=== PATIENT | male | born 1970 | race Caucasian/White ===

== ENCOUNTER → 2023-08-11 06:52 | Outpatient (REF) | payer BC, SELFPAY ==
[2023-08-11 08:07] LABS: % Eosinophils 1.7 % (0-6); % Immature Granulocytes 0.8 % (0-0.5); % Lymphocytes 25.6 % (20.5-51.1); % Monocytes 7.2 % (1.7-9.3); % Neutrophils 63.7 % (42.2-75.2); Absolute Basophils 0.1 10^3/uL (0-0.2); Absolute Eosinophils 0.1 10^3/uL (0-0.7); Absolute Immature Granulocytes 0.1 10^3/uL (0-0.05); Absolute Lymphocytes 1.8 10^3/uL (1.2-3.4); Absolute Monocytes 0.5 10^3/uL (0.1-0.6); Absolute Neutrophils 4.5 10^3/uL (1.4-6.5); Hematocrit 42.8 % (39.0-52.0); Hemoglobin 15.3 g/dL (13.0-18.0); Mean Corp Hgb Conc. 35.7 g/dL (33.0-37.0); Mean Corpuscular Hgb 31.2 pg (27.0-31.0); Mean Corpuscular Volume 87.2 fL (80.0-94.0); Mean Platelet Volume 9.5 fL (7.4-10.4); Nucleated Red Blood Cells % 0 % (-); Platelet Count 262 10^3/uL (130-400); Red Blood Cell Count 4.91 10^6/uL (4.70-6.10); Red Cell Dist. Width 13.5 % (11.5-14.5); White Blood Cell Count 7.1 10^3/uL (4.8-10.8)
[2023-08-11 09:22] LABS: ALT (SGPT) 46 U/L (0-50); AST (SGOT) 35 U/L (17-59); Albumin 4.5 g/dl (3.5-5.0); Alkaline Phosphatase 125 U/L (38-126); Blood Urea Nitrogen 26 mg/dl (9-20); Calcium 9.6 mg/dl (8.4-10.2); Carbon Dioxide 29 mmol/L (22-30); Chloride 99 mmol/L (98-107); Glucose 123 mg/dl (70-99); HDL Cholesterol 35 mg/dl; LDL Cholesterol, Calculated 135 mg/dl; Potassium 3.1 mmol/L (3.5-5.1); Sodium 139 mmol/L (135-145); Total Cholesterol 215 mg/dl (50-199); Total Protein 6.9 g/dl (6.3-8.2); Triglyceride 225 mg/dl (10-149); Triglycerides 225 mg/dl (10-149); Very Low Density Lipoprotein 45 mg/dl (0-30); eGFR > 60.00
[2023-08-11 09:26] LABS: TSH 2.28 uIU/ml (0.47-4.68)
[2023-08-11 10:54] LABS: Glycohemoglobin (HgbA1c) 5.1 % (4.0-5.6)
[2023-08-12 20:39] LABS: % Free Testosterone 2.3 % (1.6-2.9); Free Testosterone 44 pg/mL (47-244); Sex Hormone Binding Globulin 19 nmol/L (19-76); Total Testosterone 196 ng/dL (300-890)
== END ==
LOC: REG 06:52
PROVIDERS: ATTENDING PHYSICIAN Family Medicine
DX: R73.03 Prediabetes (principal); R53.82 Chronic fatigue, unspecified
CPT/HCPCS: 36415; 80053; 80061; 83036; 83718; 84270; 84402; 84403; 84439; 84443; 84478; 85025

== ENCOUNTER → 2023-10-30 07:00 | Outpatient (REF) | payer BC, SELFPAY ==
[2023-10-30 08:26] LABS: Prolactin 22.8 ng/ml (3.7-17.9)
[2023-10-30 08:40] LABS: PSA, Total - Screen 2.55 ng/ml (0.0-4.0)
== END ==
LOC: REG 07:00
PROVIDERS: ATTENDING PHYSICIAN Family Medicine
DX: E29.1 Testicular hypofunction (principal)
CPT/HCPCS: 36415; 84146; G0103

== ENCOUNTER → 2023-12-18 13:11 | Outpatient (REF) | payer BC, SELFPAY | LOC: RAD 13:11 | PROVIDERS: ATTENDING PHYSICIAN Family Medicine | DX: M54.50 Low back pain, unspecified (principal) | CPT/HCPCS: 72110 ==

== ENCOUNTER → 2024-11-08 08:18 | Outpatient (REF) | payer BC, SELFPAY | LOC: REG 08:18 | PROVIDERS: ATTENDING PHYSICIAN Family Medicine | DX: E29.1 Testicular hypofunction (principal) | CPT/HCPCS: 36415; 84270; 84402; 84403 ==